=== PATIENT | female | born 1980 | race American Indian/Alaskan Native ===

== ENCOUNTER 2018-09-13 09:18 | Emergency (ER) | payer MEDICAID ==
[2018-09-13] MEDS ORDERED: IBUPROFEN PO ONE (09:53)
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
[2018-09-13 12:13] VITALS: BP 120/74
== END 2018-09-13 12:11 | disposition home or self-care (01) ==
LOC: ED 09:18
DX: S19.9XXA Unspecified injury of neck, initial encounter (principal); S09.90XA Unspecified injury of head, initial encounter; H57.12 Ocular pain, left eye; M79.602 Pain in left arm; M79.18 Myalgia, other site; F17.200 Nicotine dependence, unspecified, uncomplicated; Z90.81 Acquired absence of spleen; Y04.0XXA Assault by unarmed brawl or fight, initial encounter; Y93.89 Activity, other specified; Y92.89 Other specified places as the place of occurrence of the external cause; Y99.8 Other external cause status
CPT/HCPCS: 70450; 71111; 72125